=== PATIENT | female | born 1955 | race Two or more races ===

== ENCOUNTER 2020-02-28 18:14 | Inpatient (IN) | payer OTHER ==
[~2020-02-28] VITALS: Ht 165.1 cm; Wt 69.9 kg
[~2020-02-28 18:14] MED LIST: ATENOLOL100 MG PO; CATAFLAM50 MG; FLEXERIL10 MG PO; FLONASE16 GM NS; GLUCOPHAGE XR500 MG PO; GLUCOTROL10 MG PO; HYDROCHLOROTHIA25 MG PO; KETO10TA2 PO; NABUMETONE750 MG PO; ORPH100T PO; SIMVASTATIN20 MG; SIMVASTATIN20 MG PO; TUSSAFED EX LI118 ML PO; VASOTEC5 MG; VASOTEC5 MG PO; VOLTAREM 50 MG PO; ZITHROMAX PO; ZYRTEC10 MG PO
== END 2020-03-17 21:15 | disposition expired | DRG 375 ==
LOC: ER 18:14 → SURH 02-29 15:45 → SEC-K 02-29 15:45 → SURH 02-29 16:46
PROVIDERS: ADMIT Internal Medicine; ATTEND Internal Medicine
PROC: 4A033R1 Measurement of Arterial Saturation, Peripheral, Percutaneous Approach (ICD-10-PCS; principal; 2020-02-29)
PROC: 30233P1 Transfusion of Nonautologous Frozen Red Cells into Peripheral Vein, Percutaneous Approach (ICD-10-PCS; 2020-03-04)
PROC: 3E0F7GC Introduction of Other Therapeutic Substance into Respiratory Tract, Via Natural or Artificial Opening (ICD-10-PCS; 2020-03-06)
PROC: 3E0F7SF Introduction of Other Gas into Respiratory Tract, Via Natural or Artificial Opening (ICD-10-PCS; 2020-03-06)
DX: C78.6 Secondary malignant neoplasm of retroperitoneum and peritoneum (principal); I82.4Z2 Acute embolism and thrombosis of unspecified deep veins of left distal lower extremity; R18.8 Other ascites; N17.8 Other acute kidney failure; N13.8 Other obstructive and reflux uropathy; N13.39 Other hydronephrosis; C54.1 Malignant neoplasm of endometrium; I10 Essential (primary) hypertension; R06.02 Shortness of breath; E11.649 Type 2 diabetes mellitus with hypoglycemia without coma; D63.0 Anemia in neoplastic disease; Z20.828 Contact with and (suspected) exposure to other viral communicable diseases